=== PATIENT | female | born 1975 | race Caucasian/White ===

== ENCOUNTER → 2016-11-10 | Outpatient (CLI) | payer OTHER ==
[~2016-11-10] MED LIST: BENTYL 10MG CAP10 MG PO; BREO ELLIPTA 11 EACH INH; IBUPROFEN800 MG PO; INCRUSE ELLI62.5 MCG INH; KLONOPIN TAB 00.5 MG PO; METHOCARBAMOL750 MG PO; METOPROLOL SUCC25 MG PO; NEURONTIN 400400 MG PO; NORCO 5-325 TA1 EACH PO; OMEPRAZOLE40 MG PO; PERCOCET 10-321 EACH PO; PROZAC40 MG PO; VENTOLIN INHALER INH; VITAMIN C500 M1 PO; VITAMIN D250000 UNIT PO; ZOFRAN4 MG PO; [UNRECOGNIZED DRUG - OTHER] PO
== END ==
LOC: KOH-I 13:12
DX: Z01.818 Encounter for other preprocedural examination (principal); S96.912A Strain of unspecified muscle and tendon at ankle and foot level, left foot, initial encounter; I73.9 Peripheral vascular disease, unspecified
CPT/HCPCS: 73718; 93922; 93926